=== PATIENT | male | born 1975 | race Caucasian/White ===

== ENCOUNTER → 2023-06-11 06:24 | Day surgery (SDC) | payer BC, SELFPAY | LOC: GI 06:24 | PROVIDERS: ATTENDING PHYSICIAN Internal Medicine; FAMILY PHYSICIAN Internal Medicine | DX: Z12.11 Encounter for screening for malignant neoplasm of colon (principal); K57.30 Diverticulosis of large intestine without perforation or abscess without bleeding | CPT/HCPCS: G0121 ==

== ENCOUNTER 2023-09-28 19:01 | Emergency (ER) | payer BC, SELFPAY ==
[2023-09-28 19:08] VITALS: BP 136/100
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
[2023-09-28 20:17] VITALS: BMI 26.3
[2023-09-28 20:18] VITALS: BP 125/78
[2023-09-28] MEDS: PERCOCET 5/325 1 TABLET PO (20:41)
== END 2023-09-28 21:21 | disposition home or self-care (01) ==
LOC: EMR 19:01
PROVIDERS: EMERGENCY PHYSICIAN Student in an Organized Health Care Education/Training Program; FAMILY PHYSICIAN Internal Medicine
DX: S42.021A Displaced fracture of shaft of right clavicle, initial encounter for closed fracture (principal); S40.211A Abrasion of right shoulder, initial encounter; W19.XXXA Unspecified fall, initial encounter
CPT/HCPCS: 99283; 73000

== ENCOUNTER 2023-10-01 12:28 | Day surgery (SDC) | payer BC, SELFPAY ==
[2023-10-01] VITALS (12 sets, daily range): BP systolic 110–149; BP diastolic 67–89; BMI 25.8
[2023-10-01] MEDS: TYLENOL 1000 MG PO (11:12)
[2023-10-01] MEDS: CELEBREX 200 MG PO (11:13)
[2023-10-01] MEDS: NORMOSOL-R 1000 IV (11:14)
[2023-10-01] MEDS: DILAUDID 0.25 MG IV (14:45)
[2023-10-01] MEDS: ZOFRAN 4 MG IV (16:19)
== END 2023-10-01 17:00 | disposition home or self-care (01) ==
LOC: SDS 12:28
PROVIDERS: ATTENDING PHYSICIAN Orthopaedic Surgery Hand Surgery; FAMILY PHYSICIAN Internal Medicine
DX: S42.021A Displaced fracture of shaft of right clavicle, initial encounter for closed fracture (principal); V19.3XXA Pedal cyclist (driver) (passenger) injured in unspecified nontraffic accident, initial encounter
CPT/HCPCS: 23515; 73000; 76000; C1713

== ENCOUNTER 2023-11-24 11:11 | Outpatient (RCR) | payer BC, SELFPAY | END 2023-11-24 23:59 | disposition home or self-care (01) | LOC: RPT 11:11 | PROVIDERS: ATTENDING PHYSICIAN Orthopaedic Surgery Hand Surgery; FAMILY PHYSICIAN Internal Medicine | DX: Z47.89 Encounter for other orthopedic aftercare (principal); S42.002D Fracture of unspecified part of left clavicle, subsequent encounter for fracture with routine healing; Z73.6 Limitation of activities due to disability | CPT/HCPCS: 97110; 97162 ==